=== PATIENT | male | born 1995 | race Caucasian/White ===

== ENCOUNTER 2021-11-16 04:41 | Emergency (ER) | payer BC, SELFPAY ==
[2021-11-16 04:44] VITALS: BP 125/76; PULSE 92; RESP 15; TEMP 38.3; O2SAT 97; BMI 26.2
--- NOTE | 2021-11-16 05:03 | EX.ED.DYSGE1 ---
HPI History of Present Illness Chief Complaint: General Illness Informant: patient Narrative Narrative: This patient presents with about 24 hours of myalgias and lethargy. He has had some low-grade fevers. He denies cough. No nausea vomiting diarrhea. He is not immunized against COVID but does not know of any when he is has been around who has had it. He states this reminds him of having mono many years ago. No rashes. Nothing really makes this better or worse but he has not taken anything. PFSH PFSH Home Medications NK 11/16/21 [History Last Taken Unknown] Allergy/AdvReac Type Severity Reaction Status Date / Time No Known Allergies Allergy Verified 11/16/21 04:49 Social History Smoking Status: Current every day smoker tobacco type: cigarettes ROS ROS ED Constitutional Constitutional ED: Reports fever(s) and subjective Eyes Eyes: Denies blurry vision or change in vision ENT ENT ED: Denies ear pain, rhinorrhea or sore throat Cardiovascular Cardiovascular: Denies chest pain Respiratory/Chest Respiratory/Chest: Denies cough, dyspnea or sputum Gastrointestinal Gastrointestinal: Denies abdominal pain, diarrhea, nausea or vomiting Genitourinary Genitourinary ED: Denies dysuria Musculoskeletal Musculoskeletal: Reports arthralgias and myalgias Integumentary Denies rash Neurologic Neurologic: Denies headache(s) Psychiatric Psychiatric: Denies anxiety or depression Endocrine Endocrinology: Denies polydipsia or polyuria Allergic/Immunologic Allergic/Immunologic ED: Denies urticaria EXAM Physical Exam Const Vital Signs: 11/16/21 04:44 11/16/21 04:51 Temperature 101.0 F H Temperature Source Temporal Pulse Rate 92 Respiratory Rate 15 Respiratory Effort Normal Non-Labored Blood Pressure 125/76 H Blood Pressure Mean 92 Pulse Ox 97 Oxygen Delivery Method Room Air Positive well nourished and well developed General Appearance ED: well developed and NAD; Negative for cyanotic or diaphoretic HEENT HEENT Narrative: Minimally dry mucous membranes. No sinus tenderness. Negative for trauma or tenderness Eyes PERRL and EOMs intact bilaterally General Eye ED: Negative for scleral icterus Neck no lymphadenopathy and no JVD Neck Narrative: No notable lymphadenopathy. No tenderness. General: Negative for tenderness Chest Wall inspection of chest normal Resp clear to auscultation bilaterally Auscultation: Negative for rales, rhonchi or wheezes Cardio regular rate and regular rhythm GI normal to inspection, nondistended, normoactive bowel sounds, non-tender and non-distended Palpation: soft Back/Spine no CVA tenderness Extremity normal to inspection General Extremety ED: Negative for edema or tenderness General Extremity: Negative for edema Neuro Sensorium / Orientation: alert Psych mental status grossly normal Skin no rashes or lesions noted MDM MDM MDM Narrative Medical decision making narrative: Patient's monoscreen is negative. COVID is positive. Patient's not having any pulmonary symptoms at all. He really has myalgias and lethargy. Patient is overall young healthy and should do well. We discussed reasons to return. This patient is not at high risk for complications. Lab Data Attestation: I reviewed the patient's lab results. Labs: Laboratory Results - last 24 hr 11/16/21 04:47 Monoscreen Negative Discharge Plan Triage Chief Complaint: General Illness ED Provider: Danyel Pinzon Dx/Rx/DC Orders Clinical Impression: COVID-19 Instructions: Coronavirus Disease 2019 (COVID-19): Caring for Yourself or Others Prescriptions: No Action NK RF: 0 Primary Care Provider: Care Physician,No Primary Referrals: Zain Grimaldo MD [STAFF PHYSICIAN] - 1 Week if not improving Care Physician,No Primary [Primary Care Provider] - Disposition Disposition: Home, Self Care
[2021-11-16] MEDS: Acetaminophen 500 MG Tablet 1000 MG PO (05:26)
[2021-11-16] MEDS: 0.9% Normal Saline 1,000 ML 999 ML IV (05:27)
[2021-11-16 05:52] LABS: Internal QC Validated? YES +Cl - CLEAR BKGD; Monotest Negative (Negative)
[2021-11-16 06:22] VITALS: BP 125/80; PULSE 82; RESP 18; O2SAT 97
== END 2021-11-16 06:27 | disposition home or self-care (01) ==
PROVIDERS: Emergency Provider Emergency Medicine; Visit Provider Emergency Medicine
DX: U07.1 COVID-19 (principal); F17.210 Nicotine dependence, cigarettes, uncomplicated
CPT/HCPCS: 86308; 87811; 99283; J7030; A4216